=== PATIENT | male | born 1990 | race Caucasian/White ===

== ENCOUNTER 2022-07-19 08:01 | Emergency (ER) | payer MEDICAID, SELFPAY ==
[2022-07-19 08:10] VITALS: BP 139/75; PULSE 76; RESP 16; TEMP 36.3; O2SAT 96; BMI 30.5
--- NOTE | 2022-07-19 08:29 | ED_ITS ---
HPI - Abdominal Pain General: Chief Complaint: Abdominal Pain Stated Complaint: constipation Time Seen by Provider: 07/19/22 08:02 Source: patient Mode of arrival: ambulatory Limitations: no limitations History of Present Illness: Patient is a 31-year-old male who presents to ED today with a complaint of abdominal pain and constipation over the past 2 days. Patient states he normally has bowel movements every morning. He states he went yesterday morning and it was nothing but water although he had an sensation that he needed to defecate. Patient states since then he has felt like he is sitting on something and still has the urge to defecate. He states he is having painful flatulence. Denies bloody stools. Denies masses/bulges/rectal pain. He states abdominal pain is located to lower abdomen mainly around suprapubic region. MD elicited complaint: abdominal pain Pertinent past history: none Onset (ago): day(s) Pain Consistency: constant Location: Suprapubic Severity: mild Radiation: none Migration to: no migration Associated Symptoms: Reports constipation; Denies chills, dysuria, fever(s), hematochezia, hematuria, hematemesis, fecal incontinence, melena, nausea and vomiting Review of Systems Const: Denies: fever(s), chills, body aches, fatigue or malaise Card: Denies: chest pain Resp: Denies: dyspnea GI: Reports: abdominal pain and constipation; Denies: nausea, vomiting, hematemesis, fecal incontinence, rectal pain, hematochezia or melena : Denies: flank pain, dysuria or hematuria Musc: Denies: neck pain, back pain, extremity pain or joint pain Skin/Breast: Denies: rash Neuro: Denies: headache(s), numbness in extremities, weakness in extremities, sensory changes or dizziness Physical Exam Const: COMMON NORMALS: no acute distress, patient oriented x3, no limitations, alert and well nourished GENERAL APPEARANCE: cooperative ORIENTATION/CONSCIOUSNESS: Yes awake, Yes oriented to person, Yes oriented to place and Yes oriented to time HENMT: COMMON NORMALS: normocephalic and atraumatic HEAD & SCALP: normal to inspection, normocephalic and atraumatic Resp: COMMON NORMALS: normal respiratory effort and clear to auscultation bilaterally AUSCULTATION: clear to auscultation bilaterally Cardio: COMMON NORMALS: regular rate and regular rhythm RATE: regular rate RHYTHM: regular rhythm GI: COMMON NORMALS: Normal to inspection, nondistended, normoactive bowel sounds present, Soft to palpation, No hepatosplenomegaly present and no masses INSPECTION: Yes normal to inspection AUSCULTATION: Yes normoactive bowel sounds PALPATION: Yes Soft to palpation, Yes Tenderness to palpation present (GI) (suprapubic, LLQ), No Guarding due to palpation present (GI), No Rigid due to palpation and Yes No hepatosplenomegaly present RECTAL EXAM: Yes visual inspection normal, Yes normal sphincter tone, Yes heme negative stool, No hemorrhoids, No Rectal prolapse and Yes other (no stool palpable on exam) : COMMON NORMALS: Yes no CVA tenderness BLADDER/KIDNEY EXAM: Yes no CVA t enderness Back/Pelvis: COMMON NORMALS: no CVA tenderness Extremity: COMMON NORMALS: normal to inspection GENERAL: Yes normal exam except as noted Neuro: [place] COMA SCALE: document GCS findings [place] coma scale eye opening: Spontaneous [place] coma scale verbal response: Orientated [place] coma scale motor response: [place]bey commands [place] coma scale total score: 15 COMMON NORMALS: patient oriented x3 SENSORIUM/ORIENTATION: Yes alert, Yes oriented to person, Yes oriented to place and Yes oriented to time Skin: COMMON NORMALS: no rashes or lesions noted GENERAL SKIN EXAM: no rashes or lesions noted Course Vital Signs: Vital signs: Vital Signs Temperature 97.3 F L 07/19/22 08:10 Pulse Rate 76 07/19/22 08:10 Respiratory Rate 16 07/19/22 08:10 Blood Pressure 139/75 07/19/22 08:10 Pulse Oximetry 96 07/19/22 08:10 Oxygen Delivery Me thod 07/19/22 08:10 MDM - Abdominal Pain Medical Decision Making Patient appears in no acute distress. His vital signs are stable. Blood work overall is unremarkable. He does have mild elevations to his LFTs. CT scan consistent with acute diverticulitis. No abscess or perforation noted. Patient will be placed on Cipro/Flagyl. Strict return ED precautions given. Lab Data 07/19/22 08:58 07/19/22 08:58 Labs/Radiology: Radiology Impressions KUB X-Ray 07/19/22 08:29 IMPRESSION: No acute findings. Abdomen/Pelvis CT 07/19/22 08:50 IMPRESSION: 1. Mild long segment pericolonic stranding involving the sigmoid. Most consistent with acute diverticulitis. No abscess or perforation identified. 2. Diffuse constipation. 3. Normal appendix. Laboratory Results WBC 11.6 10^3/uL (4.0-10.0) H 07/19/22 08:58 RBC 5.41 10^6/uL (4.1-5.3) H 07/19/22 08:58 Hgb 16.2 g/dL (11.7-16.6) 07/19/22 08:58 Hct 49.4 % (42.0-52.0) 07/19/22 08:58 MCV 91.3 fl (80-94) 07/19/22 08:58 MCH 29.9 pg (28.0-34.0) 07/19/22 08:58 MCHC 32.8 g/dL (30.0-36.0) 07/19/22 08:58 RDW 11.9 % (12.1-15.1) L 07/19/22 08:58 Plt Count 272 10^3/cmm (130-400) 07/19/22 08:58 MPV 10.0 fL (7.4-10.4) 07/19/22 08:58 Neut % (Auto) 63.6 % 07/19/22 08:58 Lymph % (Auto) 22.6 % 07/19/22 08:58 [place] % (Auto) 9.3 % 07/19/22 08:58 Eos % (Auto) 3.5 % 07/19/22 08:58 Baso % (Auto) 0.5 % 07/19/22 08:58 Neut # (Auto) 7.38 10^3/uL (1.8-7.7) 07/19/22 08:58 Lymph # (Auto) 2.6 10^3/uL (0.8-4.8) 07/19/22 08:58 [place] # (Auto) 1.1 10^3/uL (0.2-0.9) H 07/19/22 08:58 Eos # (Auto) 0.4 10^3/uL (0.0-0.8) 07/19/22 08:58 Baso # (Auto) 0.1 10^3/uL (0.0-0.1) 07/19/22 08:58 Nucleated RBC % (auto) 0 % 07/19/22 08:58 Nucleated RBCs # 0.0 /100WBC 07/19/22 08:58 Sodium 138 mmol/L (136-145) 07/19/22 08:58 Potassium 4.4 mmol/L (3.5-5.1) 07/19/22 08:58 Chloride 100 mmol/L (98-107) 07/19/22 08:58 Carbon Dioxide 28 mmol/L (22-29) 07/19/22 08:58 Anion Gap 14.4 (5-19) 07/19/22 08:58 BUN 14 mg/dL (6-20) 07/19/22 08:58 Creatinine 0.7 mg/dL (0.7-1.2) 07/19/22 08:58 GFR Calculation 131.5 mL/min (90-130) H 07/19/22 08:58 Glucose 103 mg/dL (65-115) 07/19/22 08:58 Calculated Osmolality 287 mOsm/kg (285-295) 07/19/22 08:58 Calcium 9.5 mg/dL (8.5-10.5) 07/19/22 08:58 Total Bilirubin 0.2 mg/dL (0.15-1.2) 07/19/22 08:58 AST 117 U/L (0-40) H 07/19/22 08:58 ALT 114 U/L (0-41) H 07/19/22 08:58 Alkaline Phosphatase 86 U/L (40-130) 07/19/22 08:58 Total Protein 7.4 g/dL (6.6-8.7) 07/19/22 08:58 Albumin 4.3 g/dL (3.5-5.2) 07/19/22 08:58 Globulin 3.1 g/dL (1.3-4.6) 07/19/22 08:58 Urine Color Yellow (Yellow) 07/19/22 09:45 Urine Appearance Clear (CLEAR) 07/19/22 09:45 Urine pH 7 (5-7) 07/19/22 09:45 Ur Specific [place] 1.010 (1.005-1.030) 07/19/22 09:45 Urine Protein Neg (Negative) 07/19/22 09:45 Urine Glucose (UA) Norm (Normal) 07/19/22 09:45 Urine Ketones 1+ (Negative) H 07/19/22 09:45 Urine Blood Neg (Negative) 07/19/22 09:45 Urine Nitrate Negative (Negative) 07/19/22 09:45 Urine Bilirubin Neg (Negative) 07/19/22 09:45 Urine Urobilinogen Norm mg/dL (Negative) 07/19/22 09:45 Ur Leukocyte Esterase Negative (Negative) 07/19/22 09:45 Discharge Plan Discharge Patient Disposition: Home Clinical Impression: Diverticulitis Condition: Stable Prescriptions: New metronidazole 500 mg tablet 500 mg PO BID 7 Days Qty: 20 0RF ciprofloxacin HCl [Cipro] 500 mg tablet 500 mg PO Q12H Qty: 20 0RF Discharge Orders: Discharge ED (Routine); Ordered 07/19/22 Ordered By: Carmen Brenner Patient Instructions: Diverticulitis (DC) Activity Restrictions/Additional Instructions: Fill your antibiotics and start them immediately. You need to return to the emergency department for worsening abdominal pain, fevers, repetitive episodes of vomiting, continued inability to have a bowel movement, or any other concerns you may have. I hope you begin to feel better soon. Please follow-up with your primary care provider early next week for reevaluation. Coding Level of Care Code ED [employer]
--- NOTE | 2022-07-19 08:29 | XRR_ITS ---
PROCEDURE INFORMATION: Exam: XR Abdomen Exam date and time: 07/19/2022 8:36 AM Age: 31 years old Clinical indication: Constipation; Additional info: Constipation, ab pain TECHNIQUE: Imaging protocol: Radiologic exam of the abdomen. Views: Frontal supine view of the abdomen. 1 View. COMPARISON: No relevant prior studies available. FINDINGS: Gastrointestinal tract: Bowel gas pattern is unremarkable. No sign of obstruction. The cecum and sigmoid contain stool. No colonic dilation is visible. Bones/joints: Bones are unremarkable. XR/XR KUB [id number] IMPRESSION: No acute findings.
--- NOTE | 2022-07-19 08:50 | CT_ITS ---
WS: [id number] CT ABDOMEN AND PELVIS WITH CONTRAST HISTORY: unable to have BM/urge to defecate, pain TECHNIQUE: Imaging performed of the abdomen and pelvis with IV contrast. Single phase imaging of the abdomen. Coronal and sagittal reformats are submitted. All CT scans at [facility] use at [address] one of these dose optimization techniques: automated exposure control; mA and/or kV adjustment per patient size (includes targeted exams where dose is matched to clinical indication); or iterative re construction. IV CONTRAST: Omnipaque 350; 100 mL IV. Oral contrast: No DLP: 566.62 mGy.cm COMPARISON: None available. Lower thorax: Lung bases are clear. Heart is normal size. No hiatal hernia. Liver/biliary system: Normal size with no intrahepatic dilatation. Gallbladder: Normal. No gallstones or wall thickening. No pericholecystic fluid. Pancreas: Normal size pancreas and pancreatic duct. No adjacent inflammation. Spleen: Normal size spleen. No mass or infarct. There is a well-circumscribed mass between the LEFT kidney and the spleen which is similar enhancement of the spleen measuring 16 mm. This mass also abut s the kidney but I favor this is probably a splenule and not a renal mass. Adrenal glands: Normal. Right kidney: Normal size RIGHT kidney. There is a low-attenuation nodule superior pole RIGHT kidney measuring 10 mm. May be a small cyst but too small to characterize completely. No obstruction. Left kidney: Normal. Aorta: Normal. Lymphadenopathy: None. Free fluid: None. GI tract: Nondistended stomach. No small bowel obstruction. Normal appendix. There is mild to moderat e diffuse fecal retention and constipation. There are numerous diverticula in the descending and sigm oid colon. There is inflammation and pericolonic stranding involving the sigmoid. No free air or absc ess. Abdominal wall: Fat containing umbilical hernia. Pelvis: No free fluid or adenopathy within the pelvis. Negative urinary bladder. Small benign appeari ng inguinal lymph nodes. Bones: Unremarkable. CT/CT abdomen pelvis w con* [id number] IMPRESSION: 1. Mild long segment pericolonic stranding involving the sigmoid. Most consist ent with acute diverticulitis. No abscess or perforation identified. 2. Diffuse constipation. 3. Normal appendix.
[2022-07-19 09:05] LABS: Basophils # 0.1 10^3/uL (0.0-0.1); Basophils % 0.5 %; Eosinophils # 0.4 10^3/uL (0.0-0.8); Eosinophils % 3.5 %; Hematocrit 49.4 % (42.0-52.0); Hemoglobin 16.2 g/dL (11.7-16.6); Lymphocytes # 2.6 10^3/uL (0.8-4.8); Lymphocytes % 22.6 %; Mean Corpuscular HGB Conc 32.8 g/dL (30.0-36.0); Mean Corpuscular Hemoglobin 29.9 pg (28.0-34.0); Mean Corpuscular Volume 91.3 fl (80-94); Monocytes # 1.1 10^3/uL (0.2-0.9); Monocytes % 9.3 %; Neutrophils # 7.38 10^3/uL (1.8-7.7); Neutrophils % 63.6 %; Nucleated Red Blood Cells % 0 %; Platelet Count 272 10^3/cmm (130-400); Red Blood Count 5.41 10^6/uL (4.1-5.3); Red Cell Distribution Width 11.9 % (12.1-15.1); White Blood Count 11.6 10^3/uL (4.0-10.0)
[2022-07-19 09:23] LABS: Alanine Aminotransferase 114 U/L (0-41); Albumin Level 4.3 g/dL (3.5-5.2); Alkaline Phosphatase 86 U/L (40-130); Anion Gap 14.4 (5-19); Aspartate Amino Transferase 117 U/L (0-40); Blood Urea Nitrogen 14 mg/dL (6-20); Calcium 9.5 mg/dL (8.5-10.5); Carbon Dioxide 28 mmol/L (22-29); Chloride 100 mmol/L (98-107); Globulin 3.1 g/dL (1.3-4.6); Glomerular Filtration Rate 131.5 mL/min (90-130); Glucose 103 mg/dL (65-115); Osmolality Calculated 287 mOsm/kg (285-295); Potassium 4.4 mmol/L (3.5-5.1); Sodium 138 mmol/L (136-145); Total Bilirubin 0.2 mg/dL (0.15-1.2); Total Protein 7.4 g/dL (6.6-8.7)
[2022-07-19] MEDS: iohexol 350 mg/mL 500 mL Btl (per mL) IV (09:31)
[2022-07-19 10:05] LABS: Add Urine Microscopic? NO; Charge for UA Resulting for Rev
[2022-07-19 10:11] VITALS: BP 134/81; O2SAT 95
[2022-07-19 10:12] LABS: Urine Appearance Clear (CLEAR); Urine Color Yellow (Yellow); pH Urine 7 (5-7)
[2022-07-19 10:13] LABS: Bilirubin Urine Neg (Negative); Blood Urine Neg (Negative); Glucose Urine UA Norm (Normal); Ketones Urine 1+ (Negative); Leukocyte Esterase Urine Negative (Negative); Nitrate Urine Negative (Negative); Protein Urine Neg (Negative); Urobilinogen Urine Norm (Negative)
[2022-07-19 10:30] VITALS: BP 115/80; O2SAT 93
--- NOTE | 2022-07-30 15:27 | DCPLANNER ---
Addendum entered by Yana Yuan 08/01/22 08:19: Patient had a follow up appointment to establish care at [place] - patient did not attend appointment. Addendum entered by Yana Yuan 07/30/22 15:27: medical and health services manager called the [facility] clinic - gave clinic patients information, a follow up appointment was scheduled for Sunday, July 31, 2022 at 2:00 with Janet Scott. medical and health services manager called patient and gave him the appointment information. Original Note: 07.28.22 - patient was called due to no primary care physician - patient stated that he would like to be established with a primary care physician in the [place] area.
== END 2022-07-19 10:38 | disposition home or self-care (01) ==
PROVIDERS: Emergency Provider Physician Assistant
DX: K57.92 Diverticulitis of intestine, part unspecified, without perforation or abscess without bleeding (principal)
CPT/HCPCS: 36415; 74018; 74177; 80053; 81003; 85025; 99285; Q9967